=== PATIENT | female | born 1970 | race Caucasian/White ===

== ENCOUNTER 2017-07-05 00:16 | Day surgery (SDC) | payer BC, MEDICAID ==
[~2017-07-05] VITALS: Ht 157.5 cm; Wt 108.9 kg
[~2017-07-05 00:16] MED LIST: GAB300 PO; LOR75 GT; OXYC20TA86 PO; PER PO
[2017-07-05 11:03] VITALS: BP 123/75
[2017-07-05] MEDS ORDERED: fentaNYL CITR 250 MCG/5 ML AMP ONE (11:54)
[2017-07-05] MEDS ORDERED: SUGAMMADEX SOD 200 MG/2 ML SDV ONE (11:55)
[2017-07-05] MEDS ORDERED: DEXAMETHASONE SOD PHOS 10MG/ML ONE (11:55)
[2017-07-05] MEDS ORDERED: PROPOFOL EMUL(*) 10MG/ML 20 ML 20 ML ONE (11:55)
[2017-07-05] MEDS ORDERED: LIDOCAINE MPF 1% 5 ML VIAL ONE (11:55)
[2017-07-05] MEDS ORDERED: ONDANSETRON 4 MG/2 ML VIAL ONE ×2 (11:55→15:51)
[2017-07-05] MEDS ORDERED: HALOPERIDOL LACT 5 MG/ML VIAL IM ONE (12:01)
[2017-07-05] MEDS ORDERED: ceFAZolin(*) 2GM/D5W 50ML 50 ML IVPB ONE (12:25)
[2017-07-05] MEDS ORDERED: MIDAZOLAM 2 MG/2 ML VIAL IVP PRN (12:35)
[2017-07-05] MEDS ORDERED: NORMOSOL R SOLN(*) 1000 ML BAG 1,000 ML IV PRN (12:35)
[2017-07-05] MEDS ORDERED: FAMOTIDINE 20 MG TAB PO ONE (12:35)
[2017-07-05] MEDS ORDERED: LIDOCAINE/SOD BICARB 8.4% SYR ID ONE (12:35)
[2017-07-05] MEDS ORDERED: BUPIVACAIN 0.25% INJ 50ML VIAL ONE (13:06)
[2017-07-05] MEDS ORDERED: THROMBIN (BOVINE) 20,000 UNIT VIAL ONE (13:06)
[2017-07-05] MEDS ORDERED: ROCURONIUM BROM 10 MG/ML 10 ML ONE (13:15)
[2017-07-05] MEDS ORDERED: KETOROLAC 30 MG/ML VIAL ONE (14:42)
--- NOTE | 2017-07-05 14:48 | RADIOLOGY IMAGING REPORT ---
FACILITY: [facility] PATIENT NAME: Tamra Garland : 1970 MR: [id number] V: [id number] EXAM DATE: ORDERING PHYSICIAN: TOM GRIGGS TECHNOLOGIST: Location: [facility] Patient: Tamra Garland : 1970 Visit/Account:[id number] Date of Sevice: 07/05/2017 Exam type: LUMBAR SPINE 1 VIEW History: HARDWARE REMOVAL Comparison: October 10, 2011. Findings: A single lateral view of the lumbar spine was submitted.. Study is limited due to underpenetration o f the image. No metallic hardware is identified in the lower lumbar spine. The previous images did demonstrate bilateral pedicle screws at L5 and S1 and an intervertebral disc spacer. There appears t o been at least mild disc space narrowing L4-5 and L5-S1. IMPRESSION: 1. As above Report Dictated By: Daniela Mary MD at 07/05/2017 2:42 PM Report E-Signed By: Daniela Mary MD at 07/05/2017 2:44 PM WSN:[id number]
[2017-07-05] MEDS ORDERED: DIA5 PO (14:53)
[2017-07-05] MEDS ORDERED: PER PO (14:54)
[2017-07-05] MEDS ORDERED: DOCU240C84 PO (14:55)
[2017-07-05] MEDS ORDERED: fentaNYL CITR 100 MCG/2 ML AMP ONE (15:03)
[2017-07-05 15:24] VITALS: BP 127/63
[2017-07-05 15:55] VITALS: BP 105/78
[2017-07-05 15:58] VITALS: BP 132/57
[2017-07-05] MEDS ORDERED: oxyCODONE/ACETAMIN 5/325MG TH 2 TAB/BOTTLE ONE (16:39)
--- NOTE | 2017-07-05 20:19 | OPERATIVE REPORT 1 ---
EVENT DATE: July 05, 2017 SURGEON: Guanaco Meier MD ANESTHESIOLOGIST: Matt Marin MD ANESTHESIA: General endotracheal anesthesia. SUPERVISOR CELL MAINTENANCE: Mckinley Jiménez PA-C PREOPERATIVE DIAGNOSIS Infected retained spinal hardware. POSTOPERATIVE DIAGNOSIS Infected retained spinal hardware. PROCEDURE PERFORMED Removal of L5 and S1 pedicle screw construct. INTRAVENOUS FLUIDS 1000 mL ESTIMATED BLOOD LOSS 50 mL IMPLANTS None. SPECIMENS We sent swabs from the fluid surrounding the L5 screw heads, we sent tissue that had been surrounding the L5 screw heads, and we sent the L5 and S1 pedicle screws, rods, and caps, all for culture. COMPLICATIONS None. DRAINS None. DISPOSITION Post-anesthesia care unit. INDICATIONS FOR SURGERY Mrs. Garland is a 47-year-old female who is status post an L5-S1 fusion. Her postoperative course from that surgery was complicated by postoperative infection. When she presented to my clinic, she had some persistent pain in the region of the construct as well as episodes of drainage from the wound that would occur about every three months or so. At the time of her visit with me, the exam did not reveal any drainage at the time, but she was tender about that area. We sent her for an MRI of the lumbar spine with contrast, and this showed a couple of fluid collections around both of the L5 screw heads that were rim-enhancing on post-gadolinium images suggestive of small abscesses. Secondary to these findings and her history, she was offered and elected to undergo removal of instrumentation. DESCRIPTION OF PROCEDURE On the day of surgery, the patient was met in the preop hold area, and all questions were answered. Her operative site was identified and marked by myself. Prior to surgery, I explained in detail to the patient the possible risks of surgery, including bleeding, infection, nerve root injury, injury to surrounding structures, autonomic nervous system dysfunction, sexual dysfunction , , blindness, and unforeseen medical and surgical complications. She voiced an understanding and wished to proceed. The patient understands that such spinal surgery is not always effective at alleviating pain. The patient was brought in good condition to the operating room, and after identification of the patient, the operative site, and the appropriate surgery, she was prepped and draped in the sterile orthopedic fashion in the prone position on a Jani table. A final timeout was undertaken by members of the operating team to confirm correct patient, correct levels, and correct surgery. An incision was made over the intended surgical levels, and sharp dissection was taken down to the level of the fascia. Self-retaining retractors were placed. The fascia was incised in the parasagittal plane, and blunt dissection was used to split the muscles, first on the right. The screw heads were palpated and exposed. A combination of Bovie and pituitary rongeur was used to remove overlying tissue. Some of this tissue was sent for culture, and we also obtained swab cultures around the heads of the L5 screws. Appropriate instrumentation was then used to remove first the caps, then the rods, and then the screws themselves from both L5 and S1 on the right. Attention was then turned to the left. We split the fascia on the left and again palpated the screws, exposed the screws, obtained cultures, and then removed the caps, the suze, and the screws. We then utilized pulsed lavage to copiously irrigate the screw beds both on the right and the left. Intraoperative imaging was obtained to ensure that all metal implants had been removed. Once we were confident that we had accomplished our goals, the wound was closed in layers using interrupted sutures the deep fascia, interrupted sutures for the superficial fascia, inverted interrupted sutures for the subcutaneous tissue, and then a running subcuticular skin stitch. Sponge and needle counts were correct times two. POSTOPERATIVE CARE PLAN The patient will be discharged home once she meets criteria. She is being provided some pain medication, muscle relaxant, and stool softeners. She will follow up in my clinic in two weeks' time for wound check and examination. We will follow the results from her cultures. MAYE
== END 2017-07-05 15:24 | disposition home or self-care (01) ==
LOC: OR 00:16
PROVIDERS: ATTEND Orthopaedic Surgery
DX: Z47.2 Encounter for removal of internal fixation device (principal)
CPT/HCPCS: 20680; 72020; 87070; 87071; 87073; 87176; 87205; 94667; J1100; J1630; J1885; J2001; J2250; J2405; J2704; J3010; J3490; J0690